=== PATIENT | male | born 1940 | race African-American/Black ===

== ENCOUNTER → 2017-02-20 | Outpatient (CLI) | payer MEDICARE, BC ==
[2014-11-14 08:50] VITALS: BP 115/72
[~2017-02-20] MED LIST: AMLO-267 PO; ASPI325T70 PO; AZIT250T PO; CELE200C PO; DORZ10DR21 EACHEYE; GABA-585 PO; HYDR12.58 PO; LATA2.5D2 OP; OMEP20CA9 PO; PARO20TA3 PO; TELM80TA PO; [UNRECOGNIZED DRUG - OTHER]
--- NOTE | 2017-02-20 14:32 | KCIC ---
Single view chest Indication: Asthma Findings: Heart size is normal. Pulmonary vasculature is within normal limits. No consolidation or pleural effusion. No pneumothorax. IMPRESSION: No evidence for heart failure or pneumonia. Electronically signed by: Javid Vee MD (02/20/2017 2:29 PM) [place] [id number]
== END | disposition home or self-care (01) ==
LOC: KCIC 14:09
PROVIDERS: ATTEND Family Medicine
DX: J45.40 Moderate persistent asthma, uncomplicated (principal)
CPT/HCPCS: 71020

== ENCOUNTER → 2018-06-18 | Outpatient (CLI) | payer MEDICARE, BC ==
[2014-11-14 08:50] VITALS: BP 115/72
[~2018-06-18] MED LIST changes: -AMLO-267 PO; +AMLO1TAB43 PO; +REGADENOSON 0.4 MG/5 ML DISP.SYRIN. IV ONE
--- NOTE | 2018-06-18 13:05 | RAD ---
MR#: [id number] Date of Study: 06/18/2018 Ordering Physician: MERCEDEZ BELLAMY, Referring Physician: JESUS ELIAS Tech: RT Gerard Pearson) (N) APPROVED REPORT Test Type: Pharmacological Stress Nurse/Tech: Lois Richard R.N. Test Indications: chest pain Cardiac History: htn, dm Medications: see ehr Medical History: see ehr Resting ECG: sr, some ST depression noted in V3 adn V4 Resting Heart Rate: 77 bpm Resting Blood Pressure: 140/73mmHg Pretest Chest Pain: No chest pain Nurse/Tech Notes lungs cta, heart tones regular, good radial pulse Consent: The procedure was explained to the patient in lay terms. Informed consent was witnessed. Tony eout was entered into [employer]. History and Stress Test performed by RT Rebekah (Angelina) (N) Pharm. Details Pharmacologic stress testing was performed using 0.4mg per 5ml of regadenoson given intravenously ove r 7-10 seconds. Stress Symptoms No chest pain or symptoms. POST EXERCISE Reason for Termination: Infusion complete Target HR: No Max HR: 97 bpm Max Blood Pressure: 146/90mmHg Chest Pain: No. Arrhythmia: Yes. occasional unifocal PVC noted ST Change: No. INTERPRETATION Stress EKG Conclusion: Baseline EKG showed sinus rhythm. No ischemic changes at peak stress. No arr hythmias. Rest: Stress: Viability: Radiopharm.Tc99m QaicsexneDp58w Sestamibi Dose11.5mCi 34.2mCi Duration 13min. 13min. Img Date 06/18/2018 06/18/2018 Rest Admin Site:IV - Right AntecubitalAdministrator:RT Gerard Welch)(N) Stress Admin Site: IV - Right AntecubitalAdministrator: RT Gerard Welch)(N) STRESS DATA End Diast. Vol.102.0mlLVEDV index BSA48.0ml End Syst. Vol.29.0mlLVESV index BSA14.0ml Myocardial Yplg425.0gEject. Auujjyli88.0% Stress Scores Regional WT1.00Summed WT5.00 Regional WM0.00Summed WM0.00 Study quality was good. Left Ventricular size was Normal at Rest and Stress. Lung uptake was . Left Ventricular ejection fraction is 72%. The rest and stress images show normal perfusion, normal contraction and thickening. LV Perf. Quant 17 Seg. SSS0.00 17 Seg. SRS2.00 17 Seg. SDS0.00 Stress Defect Extent (% LAD)0.00Rest Defect Extent (% LAD)0.00Rev. Defect Extent (% LAD)0.00 Stress Defect Extent (% LCX) 5.00Rest Defect Extent (% LCX)18.80Rev. Defect Extent (% LCX)0.00 Stress Defect Extent (% RCA)0.00Rest Defect Extent (% RCA)0.00Rev. Defect Extent (% RCA)0.00 Stress Defect Extent (% EDWINA)0.90Rest Defect Extent (% EDWINA)3.30Rev. Defect Extent (% EDWINA)0.00 Conclusion 1. Regadenoson cardioisotope stress test did not show any evidence of ischemia or infarct. 2. Normal left ventricular systolic function with ejection fraction calculated at 72%. 3. Low risk for cardiac events. Signed by : Fawad Herrera, Electronically Approved : 06/18/2018 13:04:00
== END | disposition home or self-care (01) ==
LOC: NM 07:56
PROVIDERS: ATTEND Internal Medicine Cardiovascular Disease
DX: R07.89 Other chest pain (principal); I10 Essential (primary) hypertension; E11.9 Type 2 diabetes mellitus without complications
CPT/HCPCS: 78452; 93017; 96374; 96375; 96376; A9500; J2785

== ENCOUNTER → 2019-08-06 | Outpatient (CLI) | payer MEDICARE, BC ==
[2014-11-14 08:50] VITALS: BP 115/72
[~2019-08-06] MED LIST changes: +OMEP20CA16 PO; -OMEP20CA9 PO; -REGADENOSON 0.4 MG/5 ML DISP.SYRIN. IV ONE
--- NOTE | 2019-08-06 12:00 | KCIC ---
5 view cervical spine radiographs 08/06/2019 CLINICAL HISTORY: Patient fell from ladder 2 days ago with severe right neck pain. AP, lateral, bilateral oblique and three AP odontoid digital radiographs of the cervical spine were obtained. There is slight reversal of the normal cervical lordosis. The patient is post anterior discectomy and fusion using an anterior plate, bone screws and bone graft material at C3-4 and C5-6. Degenerative changes are seen involving the remaining cervical disc spaces consisting of disc space narrowing, vertebral endplate sclerosis and minimal to mild anterior and posterior vertebral body osteophyte formation. 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 Degenerative changes are seen involving the uncovertebral and facet joints throughout the cervical disc spaces. No fracture or subluxation is seen. Mild right-sided neural foraminal stenosis is seen at C4-5. Mild to moderate right-sided neural foraminal stenosis is seen at C5-6 and moderate to severe left neural foraminal stenosis is seen at C4-5. Mild to moderate left neural foraminal stenosis is seen at C5-6. No prevertebral soft tissue swelling is seen. Atherosclerotic calcification is seen in the region of the carotid bifurcations. IMPRESSION: Postsurgical and degenerative changes are seen involving the cervical spine as discussed above. No fracture or subluxation is seen. Electronically signed by: Simone Argueta MD (08/06/2019 11:57 AM) [id number]
== END | disposition home or self-care (01) ==
LOC: KCIC 10:55
PROVIDERS: ATTEND Family Medicine
DX: M47.812 Spondylosis without myelopathy or radiculopathy, cervical region (principal); M48.02 Spinal stenosis, cervical region; I65.23 Occlusion and stenosis of bilateral carotid arteries; M25.78 Osteophyte, vertebrae
CPT/HCPCS: 72050

== ENCOUNTER → 2020-02-14 | Outpatient (CLI) | payer MEDICARE, BC ==
[2014-11-14 08:50] VITALS: BP 115/72
--- NOTE | 2020-02-14 16:20 | KCIC ---
EXAM: CT Abdomen and Pelvis without IV contrast INDICATION: Reason: ABDOMINAL PAIN, HX KIDNEY STONE / Spl. Instructions: / History: Rt flank and pelvic pain. Hx stones Rt and Lt side. TECHNIQUE: Multi-detector row CT images were acquired from the lung bases through the abdomen and pelvis without the use of IV contrast. Sagittal and coronal images were acquired from the transaxial data. All CT scans performed at this facility utilize dose optimization techniques as appropriate to the exam, including the following: Automated exposure control and adjustment of the mA and/or KV according to patient size (this includes techniques or standardized protocols for targeted exams where dose is indication/reason for exam). ORAL CONTRAST: None COMPARISON: None FINDINGS: The absence of IV contrast limits evaluation of soft tissue pathology. LOWER CHEST: Unremarkable LIVER: Mild hepatomegaly with diffuse hepatic steatosis noted. BILIARY SYSTEM: Gallbladder is unremarkable. Bile ducts are not dilated. PANCREAS: Unremarkable SPLEEN: Unremarkable ADRENALS: Unremarkable KIDNEYS & URETERS: Superior pole right renal dense lesion measuring 1.4 cm and 7 mm midpole left renal dense lesion is present. These have imaging characteristics compatible with hemorrhagic or proteinaceous cysts and require no additional imaging follow-up. A simple appearing 5 cm cyst in the midpole right kidney and in the inferior pole left kidney also require no additional imaging follow-up. BLADDER: Diffuse urinary bladder wall thickening with mild perivesical soft tissue stranding is present. REPRODUCTIVE ORGANS: Prostate measures 4.9 cm in diameter. GASTROINTESTINAL: The stomach, small bowel, and colon are unremarkable. The appendix is normal. MESENTERY/PERITONEUM/RETROPERITONEUM: Unremarkable VASCULAR: Unremarkable LYMPH NODES: No adenopathy OSSEOUS & SOFT TISSUES: Unremarkable IMPRESSION: Findings compatible with acute cystitis. No other acute findings in the abdomen or pelvis on CT. Electronically signed by: Gurdeep Ventura MD (02/14/2020 4:17 PM) [id number]
== END ==
LOC: KCIC CT 07:57
PROVIDERS: ATTEND Nurse Practitioner Family
DX: N30.00 Acute cystitis without hematuria (principal); R16.0 Hepatomegaly, not elsewhere classified; K76.0 Fatty (change of) liver, not elsewhere classified
CPT/HCPCS: 74176

== ENCOUNTER 2021-01-10 08:05 | Emergency (ER) | payer MEDICARE, BC ==
[~2021-01-10] VITALS: Ht 175.3 cm; Wt 92.1 kg
--- NOTE | 2021-01-10 09:05 | PHYS DOC ---
General Adult EDM: Chief Complaint: CONSTIPATION HPI: HPI: Patient is a 80 year old male who present to ER for evaluation of constipation. Patient said he HAD HIS TEETH PULLED last Monday, he has been taking pain medication, and It stopped him from having bowel movement for 3 days. Patient denies any nausea vomiting. Patient feels like his belly is bloated. Any fever, no abdominal pain. Patient denies any chest pain, no cough, no fever, no trouble breathing. Review of Systems: Review of Systems: Constitutional: Denies fever or chills. [] Eyes: Denies change in visual acuity. [] HENT: Denies nasal congestion or sore throat. [] Respiratory: Denies cough or shortness of breath. [] Cardiovascular: Denies chest pain or edema. [] GI: Denies abdominal pain, nausea, vomiting, bloody stools or diarrhea. Positive constipation. : Denies dysuria. [] Musculoskeletal: Denies back pain or joint pain. [] Integument: Denies rash. [] Neurologic: Denies headache, focal weakness or sensory changes. [] Endocrine: Denies polyuria or polydipsia. [] Lymphatic: Denies swollen glands. [] Psychiatric: Denies depression or anxiety. [] Heart Score: C/O Chest Pain: N/A Risk Factors: Risk Factors: DM, Current or recent (<one month) smoker, HTN, HLP, family history of CAD, obesity. Risk Scores: Score 0 - 3: 2.5% MACE over next 6 weeks - Discharge Home Score 4 - 6: 20.3% MACE over next 6 weeks - Admit for Clinical Observation Score 7 - 10: 72.7% MACE over next 6 weeks - Early Invasive Strategies Allergies: Allergies: Allergies Coded Allergies Type Severity Reaction Last Updated Verified No Known Drug Allergies 04/08/14 No Physical Exam: PE: Constitutional: Well developed, well nourished, no acute distress, non-toxic appearance. [] HENT: Normocephalic, atraumatic, bilateral external ears normal, oropharynx moist, no oral exudates, nose normal. [] Eyes: PERRLA, EOMI, conjunctiva normal, no discharge. [] Neck: Normal range of motion, no tenderness, supple, no stridor. [] Cardiovascular:Heart rate regular rhythm, no murmur [] Lungs & Thorax: Bilateral breath sounds clear to auscultation [] Abdomen: Bowel sounds normal, soft, no tenderness, no masses, no pulsatile masses. [] Skin: Warm, dry, no erythema, no rash. [] Back: No tenderness, no CVA tenderness. [] Extremities: No tenderness, no cyanosis, no clubbing, ROM intact, no edema. [] Neurologic: Alert and oriented X 3, normal motor function, normal sensory function, no focal deficits noted. [] Psychologic: Affect normal, judgement normal, mood normal. [] EKG: EKG: [] Radiology/Procedures: Radiology/Procedures: [][facility] [address] [place], [place] [id number] IMAGING REPORT Signed PATIENT: SONIYA TOMAS ACCOUNT: [id number] : 1940 LOCATION: ER AGE: 80 SEX: M EXAM STATUS: REG ER ORD. PHYSICIAN: RANDOLPH ROWELL DO REASON: CONSTIPATION FOR 3 DAYS, ABDOMINAL DISTENTION PROCEDURE: ACUTE ABDOMEN SERIES INDICATION: Reason: CONSTIPATION FOR 3 DAYS, ABDOMINAL DISTENTION / Spl. Instructions: / History: COMPARISON: CT February 14, 2020 IMPRESSION: 3 views of the chest and abdomen obtained. Cardiomediastinal silhouette is again mildly prominent. Degenerative changes of the spine and hips. Calcific atherosclerosis. Nonspecific bowel gas pattern with air-filled prominent loop of bowel measuring up to about 4 cm. Difficult to tell if this is secondary to the transverse colon or a dilated loop of small bowel. Electronically signed by: Sri Sellers MD (01/10/2021 9:25 AM) [id number] DICTATED and SIGNED BY: SRI SELLERS MD DATE: 01/10/21 [id number] Course & Med Decision Making: Course & Med Decision Making Pertinent Labs and Imaging studies reviewed. (See chart for details) Patient was given magnesium citrate in the ER, he had a large bowel movement, he felt much better. Patient was discharged home in stable condition Dragon Disclaimer: Dragon Disclaimer: This electronic medical record was generated, in whole or in part, using a voice recognition dictation system. Departure Departure Impression: Primary Impression: Constipation Disposition: 01 HOME / SELF CARE / HOMELESS Condition: STABLE Referrals: KATIUSKA PERALTA MD (PCP) follow up with your doctor as needed Patient Instructions: Constipation, Adult Additional Instructions: Thank you for visiting our Emergency Department. We appreciate you trusting us with your care. If any additional problems come up don't hesitate to return to visit us. Please follow up with your primary care provider so they can plan additional care if needed and know about the problem that you had. If symptoms worsen come back to the Emergency Department. Any concerning symptoms that start such as chest pain, shortness of air, weakness or numbness on one side of the body, running high fevers or any other concerning symptoms return to the ER. RANDOLPH ROWELL DO Jan 10, 2021 09:05
--- NOTE | 2021-01-10 09:27 | RAD ---
INDICATION: Reason: CONSTIPATION FOR 3 DAYS, ABDOMINAL DISTENTION / Spl. Instructions: / History: COMPARISON: CT February 14, 2020 IMPRESSION: 3 views of the chest and abdomen obtained. Cardiomediastinal silhouette is again mildly prominent. Degenerative changes of the spine and hips. Calcific atherosclerosis. Nonspecific bowel gas pattern with air-filled prominent loop of bowel measuring up to about 4 cm. Dif ficult to tell if this is secondary to the transverse colon or a dilated loop of small bowel. Electronically signed by: Rolando Cuevas MD (01/10/2021 9:25 AM) [id number]
[2021-01-10] MEDS ORDERED: MAGNESIUM CITRATE 296 ML SOLUTION. PO ONE (09:45)
[2021-01-10 11:57] VITALS: BP 158/72
== END 2021-01-10 12:06 | disposition home or self-care (01) ==
LOC: ER 08:05
DX: K59.00 Constipation, unspecified (principal)
CPT/HCPCS: 74022; 99283